=== PATIENT | male | born 1995 | race African-American/Black ===

== ENCOUNTER 2018-03-10 00:34 | Emergency (ER) | payer SELFPAY ==
[~2018-03-10] VITALS: Ht 170.2 cm; Wt 72.0 kg
[2018-03-10 02:34] VITALS: BP 131/88
== END 2018-03-10 02:37 | disposition home or self-care (01) ==
LOC: ER 00:34
DX: F41.9 Anxiety disorder, unspecified (principal); F12.10 Cannabis abuse, uncomplicated; F17.200 Nicotine dependence, unspecified, uncomplicated
CPT/HCPCS: 99284

== ENCOUNTER 2019-02-01 14:50 | Emergency (ER) | payer MEDICAID ==
[~2019-02-01] VITALS: Ht 157.5 cm; Wt 54.0 kg
[2019-02-01] MEDS ORDERED: LORAZEPAM 0.5MG TABLET PO ONE (15:30)
[2019-02-01 15:46] VITALS: BP 138/89
== END 2019-02-01 15:47 | disposition home or self-care (01) ==
LOC: ER 14:50
DX: F41.0 Panic disorder [episodic paroxysmal anxiety] (principal); F43.0 Acute stress reaction
CPT/HCPCS: 99284

== ENCOUNTER 2019-05-08 12:14 | Emergency (ER) | payer MEDICAID ==
[~2019-05-08] VITALS: Ht 167.6 cm; Wt 75.0 kg
[2019-05-08] MEDS ORDERED: LIDOCAINE HCL 1% 20ML VIAL (Pyxis) INJ INFIL ONE (14:30)
[2019-05-08 16:34] VITALS: BP 129/65
== END 2019-05-08 16:38 | disposition home or self-care (01) ==
LOC: ER 12:14
DX: L60.0 Ingrowing nail (principal); F17.210 Nicotine dependence, cigarettes, uncomplicated; Z71.6 Tobacco abuse counseling
CPT/HCPCS: 11730; 99283; 99406

== ENCOUNTER 2019-07-13 12:45 | Emergency (ER) | payer MEDICAID ==
[~2019-07-13] VITALS: Ht 167.6 cm; Wt 75.0 kg
[2019-07-13] MEDS ORDERED: TETANUS, DIPHTHERIA, PERTUSSIS VAC/PF 0.5ML (>7YR OLD) IM ONE (15:15)
[2019-07-13] MEDS ORDERED: HYDROCODONE/ACETAMINOPHEN 5/325MG TABLET PO ONE (15:15)
[2019-07-13 15:39] VITALS: BP 127/68
== END 2019-07-13 15:43 | disposition home or self-care (01) ==
LOC: ER 12:45
DX: L60.0 Ingrowing nail (principal); M79.675 Pain in left toe(s); F12.10 Cannabis abuse, uncomplicated
CPT/HCPCS: 90471; 90715; 99283

== ENCOUNTER 2020-01-19 20:29 | Emergency (ER) | payer MEDICAID ==
[~2020-01-19] VITALS: Ht 167.6 cm; Wt 64.0 kg
[2020-01-19] MEDS: ONDANSETRON HCL 4MG/2ML INJ IV STA ×2 (22:01→23:32)
[2020-01-19 22:17] LABS: BASOPHILS % 0.5 % (0.0-2.0); EOSINOPHILS % 0.3 % (0.0-5.0); HEMATOCRIT. 54.8 % (42.0-52.0); HEMOGLOBIN. 18.4 g/dL (14.0-18.0); LYMPHOCYTES % 14.1 % (20.0-50.0); MEAN CORPUSCULAR VOLUME 89.3 fL (80.0-94.0); MEAN PLATELET VOLUME 12.2 fl (7.4-10.4); MONOCYTES % 7.1 % (2.0-8.0); PLATELET 195 x1000/uL (130-400); RED BLOOD CELL COUNT 6.13 mill/uL (4.7-6.1); RED CELL DISTRIBUTION WIDTH 14.2 % (11.6-14.6)
[2020-01-19 22:23] LABS: CHLORIDE 103 mEq/L (98-107)
[2020-01-19 23:15] LABS: CLARITY URINE CLEAR (CLEAR); COLOR URINE DK YELLOW (YELLOW); KETONES URINE 4+ (NEGATIVE); LEUKOCYTE ESTERASE URINE NEGATIVE (NEGATIVE); NITRITE URINE NEGATIVE (NEGATIVE); OCCULT BLOOD URINE NEGATIVE (NEGATIVE); PROTEIN URINE 2+ (NEGATIVE); SPECIFIC GRAVITY URINE 1.039 (1.005-1.030)
[2020-01-19] MEDS ORDERED: SODIUM CHLORIDE 0.9% 1,000 ML IV ONE (23:40)
[2020-01-19] MEDS: METOCLOPRAMIDE HCL 10MG/2ML VIAL IV STA (23:56)
[2020-01-19] MEDS: FAMOTIDINE 20MG/2ML VIAL IV STA (23:56)
[2020-01-19] MEDS: KETOROLAC 30MG/ML VIAL IV STA (23:57)
[2020-01-20] MEDS: METOCLOPRAMIDE HCL 10MG/2ML VIAL IV STA (00:58)
[2020-01-20] MEDS: FAMOTIDINE 20MG/2ML VIAL IV STA (00:58)
[2020-01-20] MEDS: KETOROLAC 30MG/ML VIAL IV STA (01:39)
[2020-01-20 01:40] VITALS: BP 131/74
== END 2020-01-20 01:43 | disposition home or self-care (01) ==
LOC: ER 20:29
DX: K76.9 Liver disease, unspecified (principal); R11.2 Nausea with vomiting, unspecified; F17.200 Nicotine dependence, unspecified, uncomplicated; F12.10 Cannabis abuse, uncomplicated
CPT/HCPCS: 36415; 71045; 76705; 80053; 81003; 82248; 83690; 85025; 93005; 96361; 96374; 96375; 99285; J1885; J2405; J2765; J3490; J7030

== ENCOUNTER 2020-09-26 10:17 | Emergency (ER) | payer MEDICAID ==
[~2020-09-26] VITALS: Ht 170.2 cm; Wt 62.0 kg
[2020-09-26] MEDS ORDERED: ONDANSETRON HCL 4MG/2ML INJ IV STA (10:31)
[2020-09-26] MEDS ORDERED: FAMOTIDINE 20MG/2ML VIAL IV STA (10:31)
[2020-09-26] MEDS ORDERED: SODIUM CHLORIDE 0.9% 1,000 ML IV ONE (10:45)
[2020-09-26] MEDS ORDERED: MORPHINE SULFATE 2 MG/ML CPJ (NOT FOR IM USE) IV ONE (11:00)
[2020-09-26 11:22] LABS: BASOPHILS % 0.5 % (0.0-2.0); EOSINOPHILS % 0.3 % (0.0-5.0); HEMOGLOBIN. 16.3 g/dL (14.0-18.0); LYMPHOCYTES % 15.7 % (20.0-50.0); MEAN CORPUSCULAR HEMOGLOBIN 30.5 pg (28.0-32.0); MEAN CORPUSCULAR VOLUME 87.8 fL (80.0-94.0); MEAN PLATELET VOLUME 11.2 fl (7.4-10.4); MONOCYTES % 6.3 % (2.0-8.0); NEUTROPHILS % 77.2 % (40.0-76.0); PLATELET 186 x1000/uL (130-400); RED BLOOD CELL COUNT 5.36 mill/uL (4.7-6.1); RED CELL DISTRIBUTION WIDTH 13.4 % (11.6-14.6)
[2020-09-26 11:27] LABS: CHLORIDE 107 mEq/L (98-107)
[2020-09-26 11:30] LABS: INR 1.1; PROTHROMBIN TIME 11.4 sec (9.6-11.0)
[2020-09-26 11:34] LABS: CLARITY URINE CLEAR (CLEAR); COLOR URINE YELLOW (YELLOW); KETONES URINE 4+ (NEGATIVE); LEUKOCYTE ESTERASE URINE TRACE (NEGATIVE); NITRITE URINE NEGATIVE (NEGATIVE); OCCULT BLOOD URINE NEGATIVE (NEGATIVE); PH URINE 5.5 (4.5-8.0); PROTEIN URINE NEGATIVE (NEGATIVE); SPECIFIC GRAVITY URINE 1.028 (1.005-1.030); UROBILINOGEN URINE 0.2 E.U./dL (0.2-1.0)
[2020-09-26] MEDS ORDERED: MORPHINE SULFATE 4 MG/ML CPJ (NOT FOR IM USE) IV NR (12:15)
[2020-09-26] MEDS ORDERED: FAMO40TA70 MT (13:43)
[2020-09-26] MEDS ORDERED: ONDA4TAB5 MT (13:43)
[2020-09-26] MEDS ORDERED: METO-293 MT (13:46)
[2020-09-26 14:05] VITALS: BP 135/80
== END 2020-09-26 14:07 | disposition home or self-care (01) ==
LOC: ER 10:39
DX: R10.13 Epigastric pain (principal); R11.2 Nausea with vomiting, unspecified; F17.290 Nicotine dependence, other tobacco product, uncomplicated; F12.10 Cannabis abuse, uncomplicated; F41.9 Anxiety disorder, unspecified; F32.9 Major depressive disorder, single episode, unspecified
CPT/HCPCS: 36415; 76700; 80053; 81003; 83690; 85025; 85610; 96361; 96374; 96375; 96376; 99284; J2270; J2405; J3490; J7030

== ENCOUNTER 2020-09-30 09:12 | Emergency (ER) | payer MEDICAID ==
[~2020-09-30] VITALS: Ht 165.1 cm; Wt 85.0 kg
[~2020-09-30 09:12] MED LIST: FAMO40TA70 MT; METO-293 MT; ONDA4TAB5 MT
[2020-09-30] MEDS ORDERED: SODIUM CHLORIDE 0.9% 1,000 ML IV ONE (09:30)
[2020-09-30] MEDS ORDERED: ONDANSETRON HCL 4MG/2ML INJ IV STA (09:30)
[2020-09-30] MEDS ORDERED: PANTOPRAZOLE SODIUM 40 MG/VIAL IV STA (09:30)
[2020-09-30 10:00] VITALS: BP 119/79
== END 2020-09-30 09:59 | disposition left against medical advice (07) ==
LOC: ER 09:13
DX: R10.9 Unspecified abdominal pain (principal); R11.2 Nausea with vomiting, unspecified; Z53.21 Procedure and treatment not carried out due to patient leaving prior to being seen by health care provider
CPT/HCPCS: J7030; Z7610; 99281

== ENCOUNTER 2020-12-09 00:09 | Emergency (ER) | payer MEDICAID ==
[~2020-12-09] VITALS: Ht 165.1 cm; Wt 61.0 kg
[2020-12-09] MEDS ORDERED: LORAZEPAM 2MG/ML CPJ IM STA (02:24)
[2020-12-09] MEDS ORDERED: LORA-250 PO (03:24)
[2020-12-09 04:05] VITALS: BP 117/64
== END 2020-12-09 04:06 | disposition home or self-care (01) ==
LOC: ER 00:09
DX: F41.0 Panic disorder [episodic paroxysmal anxiety] (principal)
CPT/HCPCS: 96372; 99283; J2060

== ENCOUNTER 2021-07-12 06:40 | Emergency (ER) | payer MEDICAID ==
[~2021-07-12] VITALS: Ht 165.1 cm; Wt 66.0 kg
[~2021-07-12 06:40] MED LIST changes: +LORA-250 PO
[2021-07-12] MEDS ORDERED: ONDANSETRON HCL 4MG/2ML INJ IV STA (07:03)
[2021-07-12] MEDS ORDERED: KETOROLAC 30MG/ML VIAL IV STA (07:03)
[2021-07-12] MEDS ORDERED: SODIUM CHLORIDE 0.9% 1,000 ML IV ONE (07:15)
[2021-07-12 10:17] LABS: HEMATOCRIT. 50.2 % (42.0-52.0); HEMOGLOBIN. 17.2 g/dL (14.0-18.0); MEAN CORPUSCULAR HEMOGLOBIN 29.9 pg (28.0-32.0); MEAN PLATELET VOLUME 11.2 fl (7.4-10.4); PLATELET 261 x1000/uL (130-400); RED BLOOD CELL COUNT 5.77 mill/uL (4.7-6.1); RED CELL DISTRIBUTION WIDTH 13.4 % (11.6-14.6)
[2021-07-12 10:19] LABS: CHLORIDE 105 mEq/L (98-107)
[2021-07-12 10:41] LABS: PLATELET ESTIMATE NORMAL
[2021-07-12] MEDS ORDERED: DICYCLOMINE 10 MG/5 ML ORAL SYR PO STA (11:35)
[2021-07-12] MEDS ORDERED: VISCOUS LIDOCAINE 2% 15 ML UDC PO STA (11:35)
[2021-07-12] MEDS ORDERED: MAGNESIUM/ALUMINUM HYDROXIDE/SIMETHICONE 30ML UDC PO STA (11:35)
[2021-07-12] MEDS ORDERED: MORPHINE SULFATE 4 MG/ML CPJ (NOT FOR IM USE) IV ONE (11:45)
[2021-07-12] MEDS ORDERED: TOPUD PO (13:09)
[2021-07-12] MEDS ORDERED: ONDA4TAB5 PO (13:09)
[2021-07-12] MEDS ORDERED: ACETAMINOPHEN 325MG TABLET PO ONE (13:15)
[2021-07-12 14:35] VITALS: BP 119/72
== END 2021-07-12 14:38 | disposition home or self-care (01) ==
LOC: ER 07:06
DX: R10.30 Lower abdominal pain, unspecified (principal)
CPT/HCPCS: 36415; 80053; 83690; 85025; 96361; 96374; 99284; J2270; J7030; Z7610

== ENCOUNTER 2023-02-24 16:51 | Emergency (ER) | payer MEDICAID, OTHER ==
[~2023-02-24] VITALS: Ht 167.6 cm; Wt 64.0 kg
[~2023-02-24 16:51] MED LIST changes: +ONDA4TAB5 PO; +TOPUD PO
[2023-02-24 17:18] VITALS: BP 146/88; PULSE 114; RESP 19; TEMP 98.6; O2SAT 100
[2023-02-24] MEDS ORDERED: HYDROXYZINE 25MG TABLET PO NR (18:00)
[2023-02-24] MEDS ORDERED: MELA5TAB19 MT (20:15)
== END 2023-02-24 20:22 | disposition home or self-care (01) ==
LOC: ER 16:51
DX: F41.9 Anxiety disorder, unspecified (principal)
CPT/HCPCS: 93005; 99283